=== PATIENT | female | born 1975 | race Hispanic/Latino ===

== ENCOUNTER 2017-10-21 17:10 | Emergency (ER) | payer SELFPAY ==
[2017-10-21] MEDS ORDERED: DEXAMETHASONE SOD PHOSPHATE 10MG/ML 1ML VIAL ONE (17:45)
[2017-10-21 18:00] LABS: RAPID GROUP A STREP NEGATIVE (NEGATIVE)
== END 2017-10-21 18:37 | disposition home or self-care (01) ==
LOC: EDH 17:10
DX: J10.1 Influenza due to other identified influenza virus with other respiratory manifestations (principal)
CPT/HCPCS: 87804 ×2; 87880; 96372; 99284; J1100